=== PATIENT | female | born 1965 | race Caucasian/White ===

== ENCOUNTER 2020-04-10 06:32 | Outpatient (CLI) | payer BC, SELFPAY ==
--- NOTE | ~2020-04-10 | CT_ITS ---
EXAMINATION: CT abdomen pelvis w con EXAM DATE: 04/10/2020 07:06 INDICATION: Abdominal distention. TECHNIQUE: Spiral CT of the abdomen and pelvis was performed following intravenous injection of 100 m L Omnipaque 350. Axial, coronal and sagittal images were reviewed. The dose-length product (DLP) fo r this examination was 417.58 mGy-cm. The exposure was tailored according to patient size (auto mA e xposure control), and iterative reconstruction (ASIR) was used as additional dose reduction technique . There is no prior study for comparison. FINDINGS: The liver, spleen, adrenal glands and pancreas are unremarkable. There are cholecystectomy clips. Portal and splenic veins are patent. Kidneys enhance symmetrically. There is no hydronephr osis. The uterus is not identified and has likely been surgically resected. The bladder is unremar kable. There is no retroperitoneal or pelvic lymphadenopathy. The appendix is normal. The stomach and small bowel are unremarkable. There is expected amount of c olonic stool. No free intraperitoneal gas. The heart is normal in size. There are no pericardial or pleural effusions. The lung bases are unremarkable. There are no osteoblastic or osteolytic les ions identified. IMPRESSION: 1. No acute intra-abdominal findings. Reviewed, dictated and finalized at location B.
== END 2020-04-10 06:33 | disposition home or self-care (01) ==
PROVIDERS: PCP Internal Medicine; Visit Provider Internal Medicine
DX: R19.00 Intra-abdominal and pelvic swelling, mass and lump, unspecified site (principal)
CPT/HCPCS: 74177; Q9967

== ENCOUNTER 2020-06-06 06:50 | Outpatient (NON) | payer BC, SELFPAY ==
[2020-06-06 23:47] LABS: SARS-CoV-2 RNA PCR Negative
== END 2020-06-06 06:51 ==
LOC: ANHCOVIDDT 07:01
PROVIDERS: Visit Provider Internal Medicine
DX: Z20.828 Contact with and (suspected) exposure to other viral communicable diseases (principal)
CPT/HCPCS: 87635; C9803; U0003

== ENCOUNTER → 2020-10-16 00:36 | Outpatient (CLI) | payer BC, SELFPAY ==
[2020-10-16 18:31] LABS: SARS-CoV-2 RNA PCR Positive
== END ==
PROVIDERS: PCP Internal Medicine; Visit Provider Internal Medicine
DX: U07.1 COVID-19 (principal)
CPT/HCPCS: C9803; U0003; U0005

== ENCOUNTER 2021-02-25 10:17 | Outpatient (CLI) | payer BC, SELFPAY ==
[2021-02-25 10:55] LABS: Anion Gap 10 mmol/L (8-16); Blood Urea Nitrogen 13 mg/dL (7-17); Calcium 9.5 mg/dL (8.4-10.2); Carbon Dioxide 27 mmol/L (22-30); Chloride 102 mmol/L (98-107); Cholesterol 187 mg/dL (0-200); Estimated Glomerular Filt Rate > 60; Glucose 91 mg/dL (65-110); HDL Direct 74 mg/dL; Potassium 4.2 mmol/L (3.4-5.0); Sodium 139 mmol/L (137-145); Triglycerides 83 mg/dL (<150)
[2021-02-25 11:06] LABS: LDL Cholesterol Direct 74 mg/dL
== END 2021-02-25 10:18 | disposition home or self-care (01) ==
LOC: ANHLAB 10:19
PROVIDERS: PCP Internal Medicine; Visit Provider Internal Medicine
DX: E78.5 Hyperlipidemia, unspecified (principal); Z13.6 Encounter for screening for cardiovascular disorders
CPT/HCPCS: 36415; 80048; 80061

== ENCOUNTER 2021-04-25 10:25 | Outpatient (CLI) | payer BC, SELFPAY ==
--- NOTE | ~2021-04-25 | MM_ITS ---
EXAMINATION: MM screening [facility] BI w crissy HISTORY: Screening mammogram TECHNIQUE: Craniocaudal and mediolateral oblique 3-D tomosynthesis images were obtained and synthetic 2-D images were generated. CAD analysis was submitted and interpreted. COMPARISON: 09/14/2018, 06/20/2015, 11/04/2013 BREAST PARENCHYMAL COMPOSITION: There are scattered areas of fibroglandular density. FINDINGS: There is no evidence of suspicious mass, calcification, or architectural distortion to sugg est malignancy in either breast. There has been no suspicious interval change. IMPRESSION: 1. No mammographic evidence of malignancy. 2. Recommend routine screening mammography in one year. BI-RADS Category 1: Negative Reviewed, dictated and finalized at location A.
--- NOTE | ~2021-04-25 | DEXA_ITS ---
Bone Density Report Name: Nathalia Delgado Age: 55 Sex: Female Ethnicity: White Date of : 1965 Indication: postmenopausal; height loss; hysterectomy; rheumatoid arthritis; Referring Provider: EDNA GU Study: Bone densitometry was performed. Exam Date: April 25, 2021 Accession number: [id number] Bone Density: Region BMD T-score Z-score Classification AP Spine (L1-L4) 0.989 -0.5 0.7 Normal Femoral Neck (Left) 0.835 -0.1 1.1 Normal Total Hip (Left) 0.929 -0.1 0.7 Normal Total Hip Bilateral Avg 0.910 -0.3 0.6 Normal Femoral Neck (Right) 0.806 -0.4 0.8 Normal Total Hip (Right) 0.889 -0.4 0.4 Normal World Health Organization criteria for BMD impression classify patients as: Normal (T-score at or above -1.0), Osteopenia (T-score between -1.0 and -2.5), or Osteoporosis (T-score at or below -2.5). 10-year Fracture Risk: FRAX not reported because: All T-scores for Spine Total, Hip Total, Femoral Neck at or above -1.0 Previous Exams: Region Exam Age BMD T-score BMD Change BMD Change Date g/cm2 vs Baseline vs Previous AP Spine(L1-L4) 04/25/2021 55 0.989 -0.5 0.007(0.7%) 0.007(0.7%) 12/27/2018 53 0.982 -0.6 Total Hip(Left) 04/25/2021 55 0.929 -0.1 0.027(3.0%) 0.027(3.0%) 12/27/2018 53 0.902 -0.3 Total Hip(Right) 04/25/2021 55 0.889 -0.4 0.013(1.4%) 0.013(1.4%) 12/27/2018 53 0.877 -0.5 *Denotes significance at 95% confidence level, LSC for AP Spine = 0.022 g/cm2, LSC for Total Hip = 0.027 g/cm2 Clinical Information Provided by Patient: Has rheumatoid arthritis Has the following medical conditions: Hysterectomy Patient maximum height was 66 Menopause Age: 32 No regular weight bearing exercise Drinks caffeinated beverages Onset of menses at age 13 Number of children 2 Impression: The patient has normal bone mass. No significant bone loss was observed. Discussion: BONE DENSITY IS ABOVE THE MINIMUM DESIRABLE LEVEL AT ALL SKELETAL SITES TESTED. This patient?s bone mineral density is above the minimum desirable level (T-score -1.0 or better) at all sites measured. The patient should follow a healthful lifestyle (good nutrition with adequate calcium and vitamin D, and appropriate weight-bearing exercise). Follow-Up: Consider repeating this study in 5 years or sooner if there is some new clinical indication. Reported by: MANI on 04/25/2021 11:00:00 AM.
== END 2021-04-25 10:26 | disposition home or self-care (01) ==
PROVIDERS: PCP Internal Medicine; Visit Provider Internal Medicine
DX: Z12.31 Encounter for screening mammogram for malignant neoplasm of breast (principal); Z78.0 Asymptomatic menopausal state
CPT/HCPCS: 77063; 77067; 77080